=== PATIENT | female | born 1955 | race Caucasian/White ===

== ENCOUNTER 2020-07-04 23:33 | Day surgery (SDC) | payer OTHER ==
[~2020-07-04] VITALS: Ht 167.6 cm; Wt 104.3 kg
[~2020-07-04 23:33] MED LIST: AVALIDE 150-12.1 TA1; GLIMEPIRIDE1 MG; LANTUS100 U/ML; LIPITOR20 MG; METFORMIN HYDRO25 GM; NOVOLOG100 U/ML
== END 2020-07-06 08:00 | disposition home or self-care (01) ==
LOC: ER 23:33 → CIR.AMB 07-05 07:00 → O/R 07-05 09:31 → SURH 07-05 09:31 → ER 07-05 09:31 → EDSTATUS 07-05 15:30 → O/R 07-05 16:50 → SURH 07-05 16:50 → CIR.AMB 07-06 08:00 → SURH 07-06 08:34 → O/R 07-06 08:34
PROVIDERS: ATTEND General Practice
DX: N20.1 Calculus of ureter (principal)

== ENCOUNTER → 2020-07-10 08:56 | Outpatient (CLI) | payer OTHER | END | disposition home or self-care (01) | LOC: RAD 08:56 | PROVIDERS: ATTEND Urology | DX: N20.0 Calculus of kidney (principal) ==

== ENCOUNTER 2020-08-08 11:10 | Day surgery (SDC) | payer OTHER ==
[~2020-08-08 11:10] MED LIST changes: +CARVEDILOL12.5 M1 PO; +HUMULIN
== END 2020-08-08 18:55 | disposition home or self-care (01) ==
LOC: CIR.AMB 11:10
PROVIDERS: ATTEND Urology
DX: N20.0 Calculus of kidney (principal); Z20.828 Contact with and (suspected) exposure to other viral communicable diseases

== ENCOUNTER 2023-12-05 09:05 | Emergency (ER) | payer OTHER ==
[~2023-12-05] VITALS: Ht 167.6 cm; Wt 85.7 kg
[2023-12-05 10:34] LABS: HEMATOCRIT 27.3 % (36.0-45.00); HEMOGLOBIN 9.3 g/dL (12.0-15.00); MEAN CELL VOLUME 92.4 fL (80.00-100.00); MEAN CORPUSCULAR HEMOGLOBIN 31.6 pg (27.00-32.0); MEAN CORPUSCULAR HGB CONC 34.1 g/dl (32.0-36.0); PLATELET COUNT 231 K/uL (150-450); RED BLOOD COUNT 2.96 M/uL (4.00-6.00)
[2023-12-05 10:37] LABS: RED CELL DISTRIBUTION WIDTH 19.7 % (11.5-14.5)
[2023-12-05 10:47] LABS: URINE APPEARANCE Clear; URINE BILIRRUBIN Negative (NEGATIVE); URINE BLOOD Negative; URINE COLOR Yellow; URINE LEUKOCYTE Negative; URINE NITRATE Negative; URINE PROTEIN Trace (NEGATIVE); URINE UROBILINOGEN 0.2 E.U./dl
[2023-12-05 10:51] LABS: CREATININE SERUM 1.41 mg/dL (0.55-1.02); GFR 37.09; POTASSIUM 3.98 mEq/L (3.5-5.1)
[2023-12-05 10:52] LABS: URINE BACTERIA 70.5 uL (0.0-1933); URINE EPITHELIAL CELLS 5.2 uL (0.0-38.8); URINE RBC 4.3 uL (0.0-20.8); URINE WBC 6.1 uL (0.0-23.2)
[2023-12-05 12:22] LABS: URINE GLUCOSE 500 MG/DL (NEGATIVE)
[2023-12-05 12:25] LABS: URINE CRYSTALS MODERATE /HPF
== END 2023-12-05 16:05 | disposition home or self-care (01) ==
LOC: ER 09:05
PROVIDERS: General Practice
DX: S79.811A Other specified injuries of right hip, initial encounter (principal); S39.83XA Other specified injuries of pelvis, initial encounter; S39.82XA Other specified injuries of lower back, initial encounter; W19.XXXA Unspecified fall, initial encounter; W45.8XXA Other foreign body or object entering through skin, initial encounter; Y93.89 Activity, other specified; Y92.89 Other specified places as the place of occurrence of the external cause; Y99.1 Military activity; I10 Essential (primary) hypertension; E11.9 Type 2 diabetes mellitus without complications; Z79.84 Long term (current) use of oral hypoglycemic drugs

== ENCOUNTER → 2024-07-01 08:32 | Outpatient (CLI) | payer OTHER ==
[2024-07-01 09:36] LABS: HEMATOCRIT 27.5 % (36.0-45.00); HEMOGLOBIN 8.9 g/dL (12.0-15.00); MEAN CELL VOLUME 99.7 fL (80.00-100.00); MEAN CORPUSCULAR HEMOGLOBIN 32.2 pg (27.00-32.0); MEAN CORPUSCULAR HGB CONC 32.5 g/dl (32.0-36.0); PLATELET COUNT 139 K/uL (150-450); RED BLOOD COUNT 2.76 M/uL (4.00-6.00); RED CELL DISTRIBUTION WIDTH 15.6 % (11.5-14.5)
[2024-07-01 09:43] LABS: PH,URINE 5.5 (5.0-8.0); URINE APPEARANCE Clear; URINE BILIRRUBIN Negative (NEGATIVE); URINE BLOOD Negative; URINE COLOR Yellow; URINE KETONE Negative (NEGATIVE); URINE LEUKOCYTE Negative; URINE NITRATE Negative; URINE PROTEIN Trace (NEGATIVE); URINE UROBILINOGEN 0.2 E.U./dl
[2024-07-01 09:47] LABS: URINE BACTERIA 17.6 uL (0.0-1933); URINE EPITHELIAL CELLS 3.2 uL (0.0-38.8); URINE RBC 3.9 uL (0.0-20.8); URINE WBC 14.5 uL (0.0-23.2)
[2024-07-01 10:15] LABS: URINE CAST 1.06 uL (0.0-1.40); URINE GLUCOSE >=1000 MG/DL (NEGATIVE)
[2024-07-01 10:27] LABS: ALBUMIN 3.2 gm/dL (3.4-5.0); ALKALINE PHOSPHATASE 70 U/L (50-136); ALT/SGPT 31 U/L (12-78); ANION GAP 7 (10.0-20.0); AST/SGOT 26 U/L (15-37); BILIRUBIN TOTAL 0.24 mg/dL (0.3-1.2); BILIRUBIN,CONJUGATED < 0.10 mg/dL (0.0-0.2); BILIRUBIN,UNCONJUGATED 0.14 mg/dL (0.0-0.6); BLOOD UREA NITROGEN 57 mg/dL (7-18); BUN CREA RATIO 36 (7.0-25.0); CALCIUM 9.1 mg/dL (8.5-10.1); CARBON DIOXIDE 23 mEq/L (21-32); GFR 31.96; GLOBULINA 5.2 G/DL (2.4-3.5); GLUCOSE FASTING 171 mg/dL (65-100); LDH 296 U/L (84-246); OSMOLALITY SERUM 305 MOSM/KG (275-295); PHOSPHOROUS 4.6 mg/dL (2.5-4.9); POTASSIUM 5.27 mEq/L (3.5-5.1); SODIUM 143 mmol/L (136-145); T4 FREE 0.85 NG/ML (0.76-1.46); TOTAL PROTEIN 8.4 gm/dL (6.4-8.2)
[2024-07-01 10:32] LABS: CHLORIDE 118 mmol/L (98-107)
[2024-07-01 11:20] LABS: MANUAL PLATELET COUNT 300; PLATELET ESTIMATE NORMAL (NORMAL)
[2024-07-02 13:06] LABS: kappa lambda r 1.07 (0.26-1.65); kappa light 136.3 mg/L (3.3-19.4)
[2024-07-02 15:10] LABS: ERYTHROPOIETIN 10.5 mIU/mL (2.6-18.5)
[2024-07-04 13:08] LABS: PARIETAL CELL ANTIBODIES 1.3 Units (0.0-20.0)
[2024-07-05 07:07] LABS: g6pd quant 286 (127-427); hgb a 97.5 % (96.4-98.8); hgb a2 2.5 % (1.8-3.2); hgb f 0 % (0.0-2.0); hgb s 0 % (0.0); rbc 2.88 x10E6/uL (3.77-5.28)
[2024-07-05 15:06] LABS: alp 0 % (.); alph 2 0 % (.); beta 0 % (.); gam 0 % (.); m spi 0 % (Not Observed); prot 24.3 mg/dL (Not Estab.)
[2024-07-06 13:06] LABS: IMM A 513 mg/dL (87-352); IMM G 2580 mg/dL (586-1602); IMM M 233 mg/dL (26-217); a:g ratio 0.7 (0.7-1.7); alpha 1 g 0.3 g/dL (0.0-0.4); alpha 2 0.9 g/dL (0.4-1.0); beta g 0.9 g/dL (0.7-1.3); gamma g 2.5 g/dL (0.4-1.8); globulin t 4.6 g/dL (2.2-3.9); m spike Not Observed g/dL (Not Observed); prot total 7.9 g/dL (6.0-8.5)
== END | disposition home or self-care (01) ==
LOC: LAB 08:32
PROVIDERS: ATTEND Internal Medicine Hematology & Oncology
DX: E78.2 Mixed hyperlipidemia (principal); Z80.3 Family history of malignant neoplasm of breast; I10 Essential (primary) hypertension; E11.9 Type 2 diabetes mellitus without complications; I11.0 Hypertensive heart disease with heart failure; D50.8 Other iron deficiency anemias; R74.02 Elevation of levels of lactic acid dehydrogenase [LDH]; K76.89 Other specified diseases of liver; D63.8 Anemia in other chronic diseases classified elsewhere; D63.1 Anemia in chronic kidney disease; D51.1 Vitamin B12 deficiency anemia due to selective vitamin B12 malabsorption with proteinuria; E03.8 Other specified hypothyroidism; E06.3 Autoimmune thyroiditis; M06.9 Rheumatoid arthritis, unspecified; N18.31 Chronic kidney disease, stage 3a; E83.52 Hypercalcemia; N25.81 Secondary hyperparathyroidism of renal origin; R80.9 Proteinuria, unspecified; E11.22 Type 2 diabetes mellitus with diabetic chronic kidney disease; E85.0 Non-neuropathic heredofamilial amyloidosis; N18.2 Chronic kidney disease, stage 2 (mild)

== ENCOUNTER 2024-07-26 16:45 | Inpatient (IN) | payer OTHER ==
[~2024-07-26] VITALS: Ht 162.6 cm; Wt 77.1 kg
[2024-07-26] MEDS ORDERED: ELIQUIS2.5 MG PO (17:01)
[2024-07-26] MEDS ORDERED: LASIX20 MG PO (17:01)
[2024-07-26] MEDS ORDERED: FUSION PLUS CA1 EACH PO (17:01)
[2024-07-26] MEDS ORDERED: ABATINEX680 MG PO (17:01)
[2024-07-26] MEDS ORDERED: HUMALOG100 UNIT/2 SQ (17:02)
[2024-07-26] MEDS ORDERED: FARXIGA5 MG PO (17:02)
[2024-07-26] MEDS ORDERED: LANTUS SOL100 UNIT/1 SQ (17:02)
[2024-07-26 18:43] LABS: HEMATOCRIT 29.9 % (36.0-45.00); HEMOGLOBIN 9.7 g/dL (12.0-15.00); MEAN CELL VOLUME 99.1 fL (80.00-100.00); MEAN CORPUSCULAR HEMOGLOBIN 32.1 pg (27.00-32.0); MEAN CORPUSCULAR HGB CONC 32.4 g/dl (32.0-36.0); PLATELET COUNT 168 K/uL (150-450); RED BLOOD COUNT 3.02 M/uL (4.00-6.00); RED CELL DISTRIBUTION WIDTH 14.8 % (11.5-14.5)
[2024-07-26 19:03] LABS: INR 1.15; PARTIAL THROMBOPLASTIN TIME 34.5 SECONDS (22.0-34.0); PROTHROMBIN TIME 12.4 SECONDS (9.0-11.5)
[2024-07-26 19:10] LABS: ALBUMIN 3.2 gm/dL (3.4-5.0); BILIRUBIN TOTAL 0.23 mg/dL (0.3-1.2); CALCIUM 9.5 mg/dL (8.5-10.1); CREATININE SERUM 1.65 mg/dL (0.55-1.02); GFR 30.84; TOTAL PROTEIN 9.2 gm/dL (6.4-8.2)
[2024-07-26 19:16] LABS: POTASSIUM 5.99 mEq/L (3.5-5.1)
[2024-07-26 19:49] LABS: URINE APPEARANCE Clear; URINE BILIRRUBIN Negative (NEGATIVE); URINE BLOOD Negative; URINE COLOR Yellow; URINE KETONE Negative (NEGATIVE); URINE LEUKOCYTE Trace; URINE NITRATE Negative; URINE PROTEIN Trace (NEGATIVE); URINE UROBILINOGEN 0.2 E.U./dl
[2024-07-26 19:53] LABS: URINE BACTERIA 27.7 uL (0.0-1933); URINE EPITHELIAL CELLS 5.5 uL (0.0-38.8); URINE RBC 3.2 uL (0.0-20.8); URINE WBC 49.7 uL (0.0-23.2)
[2024-07-26 19:58] LABS: URINE CAST 0.15 uL (0.0-1.40); URINE GLUCOSE 250 MG/DL (NEGATIVE)
[2024-07-26] MEDS ORDERED: SODIUM POLYSTYRENE SULFONATE 15 G/4 TSP TSP PO SCH (20:11)
[2024-07-26] MEDS ORDERED: ACETAMINOPHEN 500 MG GEL..CAP PO PRN (20:15)
[2024-07-26] MEDS ORDERED: SODIUM CHLORIDE 0.45 % 1,000 ML IV SCH (20:15)
[2024-07-26] MEDS ORDERED: CARVEDILOL 12.5 MG TABLET PO SCH (21:00)
[2024-07-26] MEDS ORDERED: INSULIN LISPRO 1,000 UNIT/10 ML UNITS SUBCUTANEO PRN (23:00)
[2024-07-26] MEDS ORDERED: DEXTROSE 50 % IN WATER 0.5 G/ML DISP.SYRIN IV PRN (23:00)
[2024-07-27 00:24] LABS: MAGNESIUM 2.2 mg/dL (1.8-2.4); PHOSPHOROUS 4.3 mg/dL (2.5-4.9)
[2024-07-27 03:08] LABS: ABG PH 7.337 (7.35-7.45); ABG PO2 97.7 mmHg (80-100); ABG pCO2 34.3 mmHg (35-45); BASE EXCESS -6.8 mmol/l; SaO2 96.8 %; allen test SATISFACTORY; o2 21 %; puncture site RADIAL LEFT
[2024-07-27 03:29] VITALS: BP 148/85
[2024-07-27] MEDS ORDERED: SODIUM POLYSTYRENE SULFONATE 15 G/4 TSP TSP PO SCH ×2 (09:00→13:00)
[2024-07-27] MEDS ORDERED: PANTOPRAZOLE SODIUM 40 MG/VIAL VIAL IV SCH (09:00)
[2024-07-27] MEDS ORDERED: ATORVASTATIN CALCIUM 20 MG TABLET PO SCH (09:00)
[2024-07-27] MEDS ORDERED: IRBESARTAN 150 MG TABLET PO SCH (09:00)
[2024-07-27] MEDS ORDERED: ENOXAPARIN SODIUM 30 MG/0.3 ML SYRINGE SUBCUTANEO SCH (09:00)
[2024-07-27 09:10] VITALS: BP 150/91; O2SAT 99
[2024-07-27 09:31] LABS: HEMATOCRIT 28.7 % (36.0-45.00); HEMOGLOBIN 9.4 g/dL (12.0-15.00); MEAN CELL VOLUME 98.8 fL (80.00-100.00); MEAN CORPUSCULAR HEMOGLOBIN 32.5 pg (27.00-32.0); MEAN CORPUSCULAR HGB CONC 32.9 g/dl (32.0-36.0); PLATELET COUNT 157 K/uL (150-450); RED BLOOD COUNT 2.91 M/uL (4.00-6.00); RED CELL DISTRIBUTION WIDTH 14.6 % (11.5-14.5)
[2024-07-27 10:40] LABS: ALBUMIN 2.9 gm/dL (3.4-5.0); BILIRUBIN TOTAL 0.26 mg/dL (0.3-1.2); CREATININE SERUM 1.41 mg/dL (0.55-1.02); GFR 36.98; GLOBULINA 5.2 G/DL (2.4-3.5); POTASSIUM 5.61 mEq/L (3.5-5.1); TOTAL PROTEIN 8.1 gm/dL (6.4-8.2); TSH 3.23 uIU/mL (0.358-3.74)
[2024-07-27] MEDS ORDERED: SOD FERRIC GLUC COMPLX/SUCROSE 62.5 MG/5 ML AMPUL IV SCH (12:00)
[2024-07-27] MEDS ORDERED: Cyanocobalamin/Mecobalamin 1 TAB.SL SL SCH (12:00)
[2024-07-27] MEDS ORDERED: MULTIVIT INFUSN,ADULT 4,VIT K 10 ML VIAL IV SCH (12:00)
[2024-07-27] MEDS ORDERED: VITAMIN B COMPLEX 1 EACH PO SCH (17:00)
[2024-07-27 18:19] VITALS: BP 150/84; O2SAT 98
[2024-07-27] MEDS ORDERED: IRBESARTAN 150 MG TABLET PO STA (19:44)
[2024-07-27 23:34] LABS: FERRITIN 310.4 NG/ML (8-252)
[2024-07-28 02:19] VITALS: BP 148/81; O2SAT 98
[2024-07-28 06:20] LABS: HEMATOCRIT 28.7 % (36.0-45.00); HEMOGLOBIN 9.4 g/dL (12.0-15.00); MEAN CELL VOLUME 99.2 fL (80.00-100.00); MEAN CORPUSCULAR HEMOGLOBIN 32.6 pg (27.00-32.0); MEAN CORPUSCULAR HGB CONC 32.9 g/dl (32.0-36.0); PLATELET COUNT 149 K/uL (150-450); RED BLOOD COUNT 2.89 M/uL (4.00-6.00); RED CELL DISTRIBUTION WIDTH 14.9 % (11.5-14.5)
[2024-07-28 06:45] LABS: ALBUMIN 2.8 gm/dL (3.4-5.0); BILIRUBIN TOTAL 0.26 mg/dL (0.3-1.2); CALCIUM 8.9 mg/dL (8.5-10.1); CHOL HDL RATIO 1.9 (0-5.0); CREATININE SERUM 1.19 mg/dL (0.55-1.02); GFR 44.97; GLOBULINA 5.1 G/DL (2.4-3.5); MAGNESIUM 2.1 mg/dL (1.8-2.4); PHOSPHOROUS 3.8 mg/dL (2.5-4.9); POTASSIUM 4.8 mEq/L (3.5-5.1); T4 FREE 0.91 NG/ML (0.76-1.46); TOTAL PROTEIN 7.9 gm/dL (6.4-8.2)
[2024-07-28 08:29] VITALS: BP 132/84
[2024-07-28] MEDS ORDERED: EPOETIN ALFA-EPBX 10,000 UNIT/ML VIAL (Retacrit) SUBCUTANEO SCH (09:00)
[2024-07-28] MEDS ORDERED: PATIENTS OWN MEDICATION (MEDICAMENTO EN PISO) PO SCH (09:00)
[2024-07-28] MEDS ORDERED: PANTOPRAZOLE SODIUM 40 MG TABLET.DR PO SCH (09:00)
[2024-07-28] MEDS ORDERED: HYDROCHLOROTHIAZIDE 12.5 MG CAPSULE PO SCH (09:00)
[2024-07-28] MEDS ORDERED: IRBESARTAN 300 MG TABLET PO SCH (09:00)
[2024-07-28] MEDS ORDERED: THIAMINE HCL 100 MG TABLET PO SCH (09:00)
[2024-07-28] MEDS ORDERED: APIXABAN 2.5 MG TABLET PO SCH (09:00)
[2024-07-28] MEDS ORDERED: FUROsemide 20 MG TABLET PO SCH (09:00)
[2024-07-28 09:48] LABS: FOLIC ACID > 20.00 ng/ml (4.78-20)
[2024-07-28] MEDS ORDERED: AMINO ACIDS/PROTEIN HYDROLYS 30 ML BLIST.PACK PO SCH (17:00)
[2024-07-28 18:50] VITALS: BP 154/78
[2024-07-29 03:08] VITALS: BP 127/63
[2024-07-29 09:20] VITALS: BP 145/84
[2024-07-29 15:06] LABS: hgb a 97.7 % (96.4-98.8); hgb a2 2.3 % (1.8-3.2); hgb f 0 % (0.0-2.0); hgb s 0 % (0.0)
[2024-07-29] MEDS ORDERED: AVAPRO300 MG PO (16:17)
[2024-07-29] MEDS ORDERED: CARVEDILOL12.5 MG PO (16:17)
[2024-07-29] MEDS ORDERED: PANTOPRAZOLE SO40 MG PO (16:18)
[2024-07-29] MEDS ORDERED: ELIQUIS2.5 MG PO (16:18)
[2024-07-29] MEDS ORDERED: FUROSEMIDE20 MG PO (16:18)
[2024-07-29] MEDS ORDERED: LIPITOR20 MG PO (16:18)
[2024-07-29] MEDS ORDERED: FARXIGA10 MG PO (16:19)
[2024-07-29] MEDS ORDERED: INTEGRA PLUS C1 EACH PO (16:19)
== END 2024-07-29 17:08 | disposition home or self-care (01) | DRG 683 ==
LOC: ER 16:47 → MEDJ 21:02
PROVIDERS: General Practice; Internal Medicine Hematology & Oncology; Nurse Practitioner Family; ADMIT Internal Medicine; ATTEND Internal Medicine
PROC: 4A12X4Z Monitoring of Cardiac Electrical Activity, External Approach (ICD-10-PCS; principal; 2024-07-27)
PROC: BT4JZZZ Ultrasonography of Kidneys and Bladder (ICD-10-PCS; 2024-07-27)
PROC: B24BZZZ Ultrasonography of Heart with Aorta (ICD-10-PCS; 2024-07-27)
DX: N17.9 Acute kidney failure, unspecified (principal); I13.0 Hypertensive heart and chronic kidney disease with heart failure and stage 1 through stage 4 chronic kidney disease, or unspecified chronic kidney disease; I50.30 Unspecified diastolic (congestive) heart failure; E86.0 Dehydration; N18.32 Chronic kidney disease, stage 3b; E87.8 Other disorders of electrolyte and fluid balance, not elsewhere classified; D63.1 Anemia in chronic kidney disease; N20.0 Calculus of kidney; E11.65 Type 2 diabetes mellitus with hyperglycemia; E11.21 Type 2 diabetes mellitus with diabetic nephropathy; Z79.4 Long term (current) use of insulin; E87.5 Hyperkalemia; E78.5 Hyperlipidemia, unspecified; D89.0 Polyclonal hypergammaglobulinemia; M06.9 Rheumatoid arthritis, unspecified; E11.22 Type 2 diabetes mellitus with diabetic chronic kidney disease; Z86.718 Personal history of other venous thrombosis and embolism